=== PATIENT | female | born 1990 | race Caucasian/White ===

== ENCOUNTER → 2016-12-03 | Outpatient (CLI) | payer OTHER ==
[2016-12-03 10:34] LABS: HEMOGLOBIN 14.5 gm/dl (12.3-15.3); RED BLOOD COUNT 4.72 M/UL (4.00-5.10); WHITE BLOOD COUNT 8.4 K/UL (4.5-11.0)
[2016-12-03 11:02] LABS: BUN/CREATININE RATIO 15 (0-10)
== END ==
LOC: US 08:30
PROVIDERS: Specialist
DX: B18.2 Chronic viral hepatitis C (principal)
CPT/HCPCS: 36415; 76705; 80053; 80307; 82105; 82172; 82247; 82977; 83010; 83883; 84460; 84702; 85027; 87390; 87902; G0480